=== PATIENT | female | born 1995 | race Caucasian/White ===

== ENCOUNTER 2016-05-26 12:12 | Emergency (ER) | payer OTHER | END 2016-05-26 13:20 | disposition home or self-care (01) | LOC: FER 12:12 | DX: J10.1 Influenza due to other identified influenza virus with other respiratory manifestations (principal); F17.210 Nicotine dependence, cigarettes, uncomplicated | CPT/HCPCS: 87450; 87804; 87899 ==

== ENCOUNTER 2021-07-19 08:30 | Emergency (ER) | payer OTHER ==
[~2021-07-19 08:30] MED LIST: LAMICTAL100 MG PO; MACROBID100 MG PO; METFORMIN HCL500 MG PO; NORCO 5-325 TA1 EACH PO; ONDANSETRON HCL4 MG PO; PRENATAL FORMU1 EACH PO; VYVANSE50 MG PO
[2021-07-19 09:43] LABS: BASOPHIL 0.2 % (0-2); EOSINOPHIL 0.2 % (0-5); HCT 42.2 % (37.0-47.0); HGB 14.6 g/dl (12.5-16.0); MCHC 34.6 g/dL (32.0-36.0); MCV 86.8 fL (78.0-100.0); MONOCYTE 3.3 % (0-12); MPV 10.6 fL (6.0-9.5); NEUTROPHIL 87.8 % (41-80); NRBC 0; PLT 285 K/uL (150-400); RBC 4.86 M/uL (4.20-5.40); RDW 12.9 % (11.5-14.0); WBC 13.3 K/uL (4.0-10.5)
[2021-07-19 09:44] LABS: BILIRUBIN NEGATIVE (NEGATIVE); BLOOD TRACE-INTACT Ery/uL (NEGATIVE); CLARITY CLEAR (CLEAR); COLOR YELLOW (YELLOW); GLUCOSE (U) NORMAL (NORMAL); LEUKOCYTES TRACE Leu/uL (NEGATIVE); NITRITE NEGATIVE (NEGATIVE); PROTEIN TRACE (LOW) mg/dL (NEGATIVE); SPECIFIC GRAVITY 1.025 (1.001-1.030); UROBILINOGEN 0.2 mg/dL (0.2-1.0); pH 6.5 (5.0-9.0)
[2021-07-19 09:49] LABS: SQUAMOUS EPITHELIAL CELLS 20-50
[2021-07-19 09:50] LABS: BACTERIA 1+; URINARY RBC RARE
[2021-07-19 10:43] LABS: ALBUMIN 2.5 g/dL (3.4-5.0); BILIRUBIN - TOTAL 0.3 mg/dL (0.2-1.0); BUN/CREAT RATIO (CALC) 16.1 RATIO; CREATININE 0.56 mg/dL (0.51-0.95); GLOBULIN (CALCULATION) 4.2 g/dL; POTASSIUM 4.3 mmol/L (3.5-5.1); TOTAL PROTEIN 6.7 g/dL (6.4-8.2)
[2021-07-19] MEDS ORDERED: ONDANSETRON ODT4 MG PO (11:01)
[2021-07-19] MEDS ORDERED: MACROBID100 MG PO (11:01)
== END 2021-07-19 12:28 | disposition home or self-care (01) ==
LOC: FER 08:30
PROVIDERS: Emergency Medicine
DX: O23.42 Unspecified infection of urinary tract in pregnancy, second trimester (principal); O9A.212 Injury, poisoning and certain other consequences of external causes complicating pregnancy, second trimester; A05.9 Bacterial foodborne intoxication, unspecified; Z88.0 Allergy status to penicillin; Z3A.21 21 weeks gestation of pregnancy
CPT/HCPCS: 36415; 80053; 81001; 84484; 85025; 87088; 93005; J2405; J7030